=== PATIENT | male | born 1925 | race Caucasian/White ===

== ENCOUNTER 2016-12-26 13:42 | Inpatient (IN) | payer MEDICARE, BC ==
[~2016-12-26] VITALS: Ht 182.9 cm; Wt 72.6 kg
[2016-12-26] MEDS ORDERED: IV NORMAL SALINE 1000 ML BAG IV ONE (14:15)
[2016-12-26 14:31] LABS: BASOPHILS % (AUTO) 0.3 % (0.0-2.0); EOSINOPHILS # (AUTO) 0.1 K/uL (0.0-0.7); EOSINOPHILS % (AUTO) 1.3 % (0.0-7.0); HEMATOCRIT 44.6 % (40-50); HEMOGLOBIN 14.4 G/DL (14.0-18.0); LYMPHOCYTES # (AUTO) 0.9 K/UL (0.8-4.8); LYMPHOCYTES % (AUTO) 10.3 % (20.5-51.5); MEAN CORPUSCULAR HEMOGLOBIN 28.6 UUG (27.0-31.0); MEAN CORPUSCULAR HGB CONC 32 g/dL (32.0-37.0); MEAN CORPUSCULAR VOLUME 88.5 FL (82.0-92.0); MONOCYTES % (AUTO) 12.5 % (0.0-11.0); NEUTROPHILS # (AUTO) 6.4 K/UL (1.8-8.9); NEUTROPHILS % (AUTO) 75.6 % (38.5-71.5); PLATELET COUNT (AUTO) 154 K/UL (150-450); RED BLOOD CELL COUNT(AUTO) 5.05 MIL/UL (4.7-6.1); WHITE BLOOD COUNT (AUTO) 8.4 K/UL (4.0-11.2)
[2016-12-26 14:40] LABS: CARBON DIOXIDE 27 mmol/L (21-32); CHLORIDE 103 mmol/L (98-107); CREATININE 1.1 mg/dL (0.6-1.3); GLUCOSE 128 mg/dL (74-106); POTASSIUM 4.3 mmol/L (3.5-5.1); UREA NITROGEN, BLOOD 35 mg/dL (7-18)
[2016-12-26 14:45] LABS: ALANINE AMINOTRANSFERASE 14 U/L (16-63); ALKALINE PHOSPHATASE 49 U/L (50-136); ASPARTATE AMINOTRANSFERASE 22 U/L (15-37); BILIRUBIN,DIRECT 0.2 mg/dL (0.0-0.2); BILIRUBIN,TOTAL 0.7 mg/dL (0.2-1.0); TOTAL PROTEIN, SERUM 6.3 g/dL (6.4-8.2)
[2016-12-26] MEDS ORDERED: ATOR10TA PO (14:54)
[2016-12-26] MEDS ORDERED: PANT40TA2 PO (14:54)
[2016-12-26] MEDS ORDERED: MONT10TA22 PO (14:54)
[2016-12-26] MEDS ORDERED: VALS1TAB2 PO (14:54)
[2016-12-26] MEDS ORDERED: ISOS30TA9 PO (14:55)
[2016-12-26] MEDS ORDERED: TYLENOL PO (14:56)
[2016-12-26 15:05] LABS: THYROID STIMULATING HORMONE 1.079 mIU/mL (0.358-3.740)
[2016-12-26 16:07] VITALS: BP 129/69
[2016-12-26] MEDS ORDERED: HOME MED MISCELLANEOUS XX SCH (16:30)
[2016-12-26] MEDS: IV D5/ 0.9% NACL 1,000 ML IV PRN (17:18)
[2016-12-26 20:21] VITALS: BP 119/56
[2016-12-26] MEDS: ATORVASTATIN 10 MG TABLET PO SCH (21:07)
[2016-12-27] VITALS (7 sets, daily range): BP systolic 90–140; BP diastolic 46–67
[2016-12-27] MEDS: IV D5/ 0.9% NACL 1,000 ML IV PRN ×2 (05:10→17:50)
[2016-12-27] MEDS: PANTOPRAZOLE SODIUM 40 MG TABLET.DR PO SCH (06:03)
[2016-12-27 07:33] LABS: BASOPHILS % (AUTO) 0.3 % (0.0-2.0); EOSINOPHILS # (AUTO) 0.1 K/uL (0.0-0.7); EOSINOPHILS % (AUTO) 2.3 % (0.0-7.0); HEMATOCRIT 40.5 % (40-50); HEMOGLOBIN 13.1 G/DL (14.0-18.0); LYMPHOCYTES # (AUTO) 1.2 K/UL (0.8-4.8); LYMPHOCYTES % (AUTO) 18.6 % (20.5-51.5); MEAN CORPUSCULAR HEMOGLOBIN 28.7 UUG (27.0-31.0); MEAN CORPUSCULAR HGB CONC 32 g/dL (32.0-37.0); MEAN CORPUSCULAR VOLUME 89.1 FL (82.0-92.0); MONOCYTES # (AUTO) 0.9 K/UL (0.1-1.30); MONOCYTES % (AUTO) 14.4 % (0.0-11.0); NEUTROPHILS # (AUTO) 4.2 K/UL (1.8-8.9); NEUTROPHILS % (AUTO) 64.4 % (38.5-71.5); PLATELET COUNT (AUTO) 152 K/UL (150-450); RED BLOOD CELL COUNT(AUTO) 4.55 MIL/UL (4.7-6.1); WHITE BLOOD COUNT (AUTO) 6.4 K/UL (4.0-11.2)
[2016-12-27 07:50] LABS: CARBON DIOXIDE 25 mmol/L (21-32); CHLORIDE 106 mmol/L (98-107); GLUCOSE 134 mg/dL (74-106); POTASSIUM 3.8 mmol/L (3.5-5.1); UREA NITROGEN, BLOOD 28 mg/dL (7-18)
[2016-12-27] MEDS: ACETAMINOPHEN 325 MG TABLET PO PRN (08:15)
[2016-12-27] MEDS: MONTELUKAST SODIUM 10 MG TABLET PO SCH (08:15)
[2016-12-27] MEDS: VALSARTAN 80 MG TABLET PO SCH (08:15)
[2016-12-27] MEDS ORDERED: HYDROCHLOROTHIAZIDE 12.5 MG CAPSULE PO SCH (09:00)
[2016-12-27] MEDS ORDERED: ISOSORBIDE DINITRATE 20 MG TABLET PO SCH (09:00)
[2016-12-27] MEDS: CELECOXIB 200 MG CAPSULE PO SCH (18:22)
[2016-12-27] MEDS: ATORVASTATIN 10 MG TABLET PO SCH (20:59)
[2016-12-27] MEDS: ENOXAPARIN SODIUM 40 MG/0.4 ML DISP.SYRIN SQ SCH (21:00)
[2016-12-27] MEDS ORDERED: ENOXAPARIN SODIUM 30 MG/0.3 ML DISP.SYRIN SUBCUT SCH (21:00)
[2016-12-28] VITALS: BP 108/56
[2016-12-28] MEDS: IV D5/ 0.9% NACL 1,000 ML IV PRN ×2 (06:12→18:21)
[2016-12-28] MEDS: PANTOPRAZOLE SODIUM 40 MG TABLET.DR PO SCH (06:13)
[2016-12-28 06:44] VITALS: BP 110/62
[2016-12-28 07:25] LABS: ALANINE AMINOTRANSFERASE 14 U/L (16-63); ALKALINE PHOSPHATASE 46 U/L (50-136); ASPARTATE AMINOTRANSFERASE 20 U/L (15-37); BILIRUBIN,TOTAL 0.6 mg/dL (0.2-1.0); CARBON DIOXIDE 26 mmol/L (21-32); CHLORIDE 108 mmol/L (98-107); CREATININE 0.9 mg/dL (0.6-1.3); GLUCOSE 104 mg/dL (74-106); MAGNESIUM 1.8 mg/dL (1.8-2.4); PHOSPHOROUS 2.8 mg/dL (2.5-4.9); POTASSIUM 3.8 mmol/L (3.5-5.1); TOTAL PROTEIN, SERUM 5.8 g/dL (6.4-8.2); UREA NITROGEN, BLOOD 26 mg/dL (7-18)
[2016-12-28 07:48] LABS: BASOPHILS % (AUTO) 0.4 % (0.0-2.0); EOSINOPHILS # (AUTO) 0.3 K/uL (0.0-0.7); EOSINOPHILS % (AUTO) 6.2 % (0.0-7.0); HEMATOCRIT 39.8 % (40-50); HEMOGLOBIN 12.9 G/DL (14.0-18.0); LYMPHOCYTES % (AUTO) 19.4 % (20.5-51.5); MEAN CORPUSCULAR HEMOGLOBIN 28.7 UUG (27.0-31.0); MEAN CORPUSCULAR HGB CONC 32 g/dL (32.0-37.0); MEAN CORPUSCULAR VOLUME 88.4 FL (82.0-92.0); MONOCYTES # (AUTO) 0.8 K/UL (0.1-1.30); MONOCYTES % (AUTO) 14.9 % (0.0-11.0); NEUTROPHILS # (AUTO) 3.1 K/UL (1.8-8.9); NEUTROPHILS % (AUTO) 59.1 % (38.5-71.5); PLATELET COUNT (AUTO) 149 K/UL (150-450); WHITE BLOOD COUNT (AUTO) 5.2 K/UL (4.0-11.2)
[2016-12-28 08:00] VITALS: BP 123/69
[2016-12-28] MEDS: MONTELUKAST SODIUM 10 MG TABLET PO SCH (09:07)
[2016-12-28] MEDS: VALSARTAN 80 MG TABLET PO SCH (09:07)
[2016-12-28] MEDS: CELECOXIB 200 MG CAPSULE PO SCH (09:07)
[2016-12-28] MEDS ORDERED: ISOS60TA4 PO (11:10)
[2016-12-28] MEDS: ISOSORBIDE MONONITRATE 60 MG TAB.SR.24H PO SCH (14:07)
[2016-12-28 16:25] VITALS: BP 115/70
[2016-12-28] MEDS: ATORVASTATIN 10 MG TABLET PO SCH (22:09)
[2016-12-28] MEDS: ENOXAPARIN SODIUM 40 MG/0.4 ML DISP.SYRIN SQ SCH (22:10)
[2016-12-29 01:47] LABS: *BILIRUBIN,URIN NEGATIVE (NEGATIVE); *BLOOD, URINE NEGATIVE (NEGATIVE); *CLARITY,URINE CLEAR (CLEAR); *COLOR,URINE YELLOW (YELLOW); *KETONES,URINE NEGATIVE (NEGATIVE); *PROTEIN,URINE NEGATIVE (NEGATIVE); *UROBILINOGEN,URINE 0.2 E.U./dl (NORMAL); LEUKOCYTE ESTERASE ,URINE NEGATIVE (NEGATIVE); NITRITE, URINE NEGATIVE (NEGATIVE); UGLUCOSE NEGATIVE (NEGATIVE)
[2016-12-29 01:54] LABS: *AMPHETAMINE, URINE NEGATIVE (NEGATIVE); *BARBITURATE, URINE NEGATIVE (NEGATIVE); *CANNABINOID, URINE NEGATIVE (NEGATIVE); *COCCAINE, URINE NEGATIVE (NEGATIVE); *OPIATE, URINE NEGATIVE (NEGATIVE); *PHENCYCLIDINE SCREEN,URINE NEGATIVE (NEGATIVE)
[2016-12-29 02:01] LABS: BACTERIA,URINE FEW /HPF (NONE SEEN); RBC,URINE 0-3 /HPF (0-3); SQUAMOUS EPITHELIAL CELL,UR FEW /HPF (NONE SEEN)
[2016-12-29] MEDS: PANTOPRAZOLE SODIUM 40 MG TABLET.DR PO SCH (06:30)
[2016-12-29] MEDS: IV D5/ 0.9% NACL 1,000 ML IV PRN (06:33)
[2016-12-29 06:59] VITALS: BP 124/69
[2016-12-29 07:54] LABS: BASOPHILS % (AUTO) 0.3 % (0.0-2.0); EOSINOPHILS # (AUTO) 0.5 K/uL (0.0-0.7); EOSINOPHILS % (AUTO) 8.8 % (0.0-7.0); HEMATOCRIT 37.5 % (40-50); HEMOGLOBIN 12.4 G/DL (14.0-18.0); LYMPHOCYTES # (AUTO) 0.9 K/UL (0.8-4.8); MEAN CORPUSCULAR HGB CONC 33 g/dL (32.0-37.0); MEAN CORPUSCULAR VOLUME 88.3 FL (82.0-92.0); MONOCYTES # (AUTO) 0.8 K/UL (0.1-1.30); MONOCYTES % (AUTO) 13.2 % (0.0-11.0); NEUTROPHILS # (AUTO) 3.6 K/UL (1.8-8.9); NEUTROPHILS % (AUTO) 61.7 % (38.5-71.5); PLATELET COUNT (AUTO) 156 K/UL (150-450); RED BLOOD CELL COUNT(AUTO) 4.25 MIL/UL (4.7-6.1); WHITE BLOOD COUNT (AUTO) 5.8 K/UL (4.0-11.2)
[2016-12-29 08:37] LABS: ALANINE AMINOTRANSFERASE 15 U/L (16-63); ALKALINE PHOSPHATASE 49 U/L (50-136); ASPARTATE AMINOTRANSFERASE 22 U/L (15-37); BILIRUBIN,TOTAL 0.5 mg/dL (0.2-1.0); CARBON DIOXIDE 26 mmol/L (21-32); CHLORIDE 108 mmol/L (98-107); CREATININE 0.9 mg/dL (0.6-1.3); GLUCOSE 104 mg/dL (74-106); MAGNESIUM 1.6 mg/dL (1.8-2.4); PHOSPHOROUS 2.4 mg/dL (2.5-4.9); POTASSIUM 3.9 mmol/L (3.5-5.1); TOTAL PROTEIN, SERUM 5.5 g/dL (6.4-8.2); UREA NITROGEN, BLOOD 23 mg/dL (7-18)
[2016-12-29] MEDS ORDERED: VALS80TA2 PO (08:56)
[2016-12-29] MEDS ORDERED: MAGNESIUM SULFATE/D5W 100 ML IV SCH (09:00)
[2016-12-29] MEDS: MONTELUKAST SODIUM 10 MG TABLET PO SCH (10:09)
[2016-12-29] MEDS: ISOSORBIDE MONONITRATE 60 MG TAB.SR.24H PO SCH (10:09)
[2016-12-29] MEDS: VALSARTAN 80 MG TABLET PO SCH (10:09)
[2016-12-29] MEDS: CELECOXIB 200 MG CAPSULE PO SCH (10:09)
[2016-12-29] MEDS: POTASSIUM PHOSPHATE MM 5 MMOL in IV DEXTROSE 5% 100 ML IV SCH ×2 (11:25→13:42)
[2016-12-29 12:45] VITALS: BP 126/69
[2016-12-29 15:41] VITALS: BP 121/71
[2016-12-29 20:06] VITALS: BP 133/78
[2016-12-29 20:18] VITALS: BP 146/87
[2016-12-29] MEDS: ACETAMINOPHEN 325 MG TABLET PO PRN (20:56)
[2016-12-29] MEDS: ATORVASTATIN 10 MG TABLET PO SCH (20:56)
[2016-12-29] MEDS: ENOXAPARIN SODIUM 40 MG/0.4 ML DISP.SYRIN SQ SCH (20:58)
[2016-12-30 04:51] VITALS: BP 147/87
[2016-12-30] MEDS: PANTOPRAZOLE SODIUM 40 MG TABLET.DR PO SCH (06:01)
[2016-12-31] MEDS ORDERED: DORZ10DR11 EACHEYE (18:05)
== END 2016-12-30 07:57 | DRG 684 ==
LOC: ER 13:42 → TELE 15:31 → MED 12-28 19:35
PROVIDERS: ADMIT Internal Medicine Nephrology; ATTEND Internal Medicine Nephrology
DX: N17.9 Acute kidney failure, unspecified (principal); E86.0 Dehydration; N32.81 Overactive bladder; Z86.73 Personal history of transient ischemic attack (TIA), and cerebral infarction without residual deficits; I10 Essential (primary) hypertension; E78.00 Pure hypercholesterolemia, unspecified; M19.90 Unspecified osteoarthritis, unspecified site; M10.9 Gout, unspecified; H40.9 Unspecified glaucoma; S66.912A Strain of unspecified muscle, fascia and tendon at wrist and hand level, left hand, initial encounter; X58.XXXA Exposure to other specified factors, initial encounter; Y92.9 Unspecified place or not applicable
CPT/HCPCS: 36415; 70030-TC; 71010; 73110; 80307; 83735; 84100; 84443; 85025; 85730; 87070; 87086; 93005; 97161; A4663; J1650; J3475; J3490; J7030; J7042; J7060

== ENCOUNTER 2016-12-30 08:47 | Inpatient (IN) | payer MEDICARE, BC ==
[~2016-12-30] VITALS: Ht 180.3 cm; Wt 77.6 kg
[~2016-12-30 08:47] MED LIST: ATOR10TA PO; ISOS30TA9 PO; ISOS60TA4 PO; MONT10TA22 PO; PANT40TA2 PO; TYLENOL PO; VALS1TAB2 PO; VALS80TA2 PO
[2016-12-30] MEDS ORDERED: Z GUARD REMEDY PASTE 57 GM TUBE TOP PRN (09:30)
[2016-12-30] MEDS ORDERED: ACETAMINOPHEN 325 MG TABLET PO PRN ×2 (11:45→17:15)
[2016-12-30] MEDS ORDERED: CELECOXIB 200 MG CAPSULE PO SCH (11:45)
[2016-12-30] MEDS: ISOSORBIDE MONONITRATE 60 MG TAB.SR.24H PO SCH (11:45)
[2016-12-30] MEDS: VALSARTAN 80 MG TABLET PO SCH (11:45)
[2016-12-30 14:00] VITALS: BP 129/69
[2016-12-30] MEDS: MONTELUKAST SODIUM 10 MG TABLET PO SCH (15:27)
[2016-12-30] MEDS: PANTOPRAZOLE SODIUM 40 MG TABLET.DR PO SCH (15:32)
[2016-12-30] MEDS ORDERED: ATORVASTATIN 10 MG TABLET PO SCH (18:00)
[2016-12-30] MEDS: CELECOXIB 200 MG CAPSULE PO SCH (20:34)
[2016-12-30] MEDS: ATORVASTATIN 10 MG TABLET PO SCH (20:34)
[2016-12-30] MEDS: ENOXAPARIN SODIUM 40 MG/0.4 ML DISP.SYRIN SQ SCH (21:00)
[2016-12-30 21:24] VITALS: BP 127/69
[2016-12-31] MEDS: PANTOPRAZOLE SODIUM 40 MG TABLET.DR PO SCH (06:43)
[2016-12-31 08:31] VITALS: BP 137/77
[2016-12-31] MEDS: MONTELUKAST SODIUM 10 MG TABLET PO SCH (08:44)
[2016-12-31] MEDS: VALSARTAN 80 MG TABLET PO SCH (08:44)
[2016-12-31] MEDS: ISOSORBIDE MONONITRATE 60 MG TAB.SR.24H PO SCH (08:44)
[2016-12-31] MEDS ORDERED: PANTOPRAZOLE SODIUM 40 MG TABLET.DR PO SCH (09:00)
[2016-12-31] MEDS ORDERED: ISOSORBIDE MONONITRATE 60 MG TAB.SR.24H PO SCH (09:00)
[2016-12-31] MEDS ORDERED: VALSARTAN 80 MG TABLET PO SCH (09:00)
[2016-12-31] MEDS ORDERED: MONTELUKAST SODIUM 10 MG TABLET PO SCH (09:00)
[2016-12-31] MEDS ORDERED: DORZ10DR11 EACHEYE (18:05)
[2016-12-31] MEDS: CELECOXIB 200 MG CAPSULE PO SCH (21:27)
[2016-12-31] MEDS: ATORVASTATIN 10 MG TABLET PO SCH (21:27)
[2016-12-31] MEDS: ENOXAPARIN SODIUM 40 MG/0.4 ML DISP.SYRIN SQ SCH (21:29)
[2016-12-31 21:35] VITALS: BP 121/62
[2017-01-01] MEDS: PANTOPRAZOLE SODIUM 40 MG TABLET.DR PO SCH (06:03)
[2017-01-01] MEDS: ISOSORBIDE MONONITRATE 60 MG TAB.SR.24H PO SCH (08:44)
[2017-01-01] MEDS: MONTELUKAST SODIUM 10 MG TABLET PO SCH (08:45)
[2017-01-01] MEDS: DORZOLAMIDE/TIMOLOL OPHT DROP 10 ML BOTTLE EACHEYE SCH ×2 (08:50→20:55)
[2017-01-01 11:07] VITALS: BP 138/81
[2017-01-01 20:00] VITALS: BP 119/72
[2017-01-01] MEDS: CELECOXIB 200 MG CAPSULE PO SCH (20:47)
[2017-01-01] MEDS: ATORVASTATIN 10 MG TABLET PO SCH (20:47)
[2017-01-01] MEDS: ENOXAPARIN SODIUM 40 MG/0.4 ML DISP.SYRIN SQ SCH (20:50)
[2017-01-02] MEDS: PANTOPRAZOLE SODIUM 40 MG TABLET.DR PO SCH (06:31)
[2017-01-02 08:00] VITALS: BP 113/69
[2017-01-02] MEDS: ISOSORBIDE MONONITRATE 60 MG TAB.SR.24H PO SCH (09:00)
[2017-01-02] MEDS: MONTELUKAST SODIUM 10 MG TABLET PO SCH ×2 (09:20→09:29)
[2017-01-02] MEDS: DORZOLAMIDE/TIMOLOL OPHT DROP 10 ML BOTTLE EACHEYE SCH ×2 (09:24→21:03)
[2017-01-02] MEDS ORDERED: SILVER SULFADIAZINE 1% CREAM 50 GM TP PRN (11:15)
[2017-01-02] MEDS: CELECOXIB 200 MG CAPSULE PO SCH (20:58)
[2017-01-02] MEDS: ATORVASTATIN 10 MG TABLET PO SCH (20:58)
[2017-01-02 21:03] VITALS: BP 129/66
[2017-01-02] MEDS: ENOXAPARIN SODIUM 40 MG/0.4 ML DISP.SYRIN SQ SCH (21:04)
[2017-01-03 09:28] VITALS: BP 142/71
[2017-01-03] MEDS: PANTOPRAZOLE SODIUM 40 MG TABLET.DR PO SCH (09:28)
[2017-01-03] MEDS: ISOSORBIDE MONONITRATE 60 MG TAB.SR.24H PO SCH (09:28)
[2017-01-03] MEDS: DORZOLAMIDE/TIMOLOL OPHT DROP 10 ML BOTTLE EACHEYE SCH (09:28)
== END 2017-01-03 09:30 | disposition left against medical advice (07) | DRG 41 ==
PROVIDERS: ADMIT Physical Medicine & Rehabilitation Pain Medicine; ATTEND Physical Medicine & Rehabilitation Pain Medicine
PROC: 0JDR0ZZ Extraction of Left Foot Subcutaneous Tissue and Fascia, Open Approach (ICD-10-PCS; principal; 2017-01-03)
PROC: 0HBNXZZ Excision of Left Foot Skin, External Approach (ICD-10-PCS; 2017-01-03)
PROC: 0HBRXZZ Excision of Toe Nail, External Approach (ICD-10-PCS; 2017-01-03)
DX: I69.354 Hemiplegia and hemiparesis following cerebral infarction affecting left non-dominant side (principal); E46 Unspecified protein-calorie malnutrition; L97.329 Non-pressure chronic ulcer of left ankle with unspecified severity; N17.9 Acute kidney failure, unspecified; I69.398 Other sequelae of cerebral infarction; R53.1 Weakness; N32.81 Overactive bladder; I10 Essential (primary) hypertension; S63.502D Unspecified sprain of left wrist, subsequent encounter; X58.XXXD Exposure to other specified factors, subsequent encounter; B35.1 Tinea unguium; E78.5 Hyperlipidemia, unspecified; H40.9 Unspecified glaucoma; I87.2 Venous insufficiency (chronic) (peripheral); I89.0 Lymphedema, not elsewhere classified; L84 Corns and callosities; M10.9 Gout, unspecified; M19.90 Unspecified osteoarthritis, unspecified site; M65.9 Synovitis and tenosynovitis, unspecified; M77.9 Enthesopathy, unspecified; Z74.01 Bed confinement status; E86.0 Dehydration
CPT/HCPCS: 70030-TC; 92523; 97110; 97116; 97161; 97530; 97535; J1650

== ENCOUNTER 2017-01-22 16:47 | Inpatient (IN) | payer MEDICARE, BC ==
[~2017-01-22] VITALS: Ht 180.3 cm; Wt 75.7 kg
[~2017-01-22 16:47] MED LIST changes: +DORZ10DR11 EACHEYE; -ISOS30TA9 PO; -VALS1TAB2 PO
[2017-01-22] MEDS ORDERED: EPINEPHRINE 0.1% NS ONE (17:00)
[2017-01-22] MEDS ORDERED: EPINEPHRINE 1:1000 30 MG/30 ML VIAL IV ONE (17:00)
--- NOTE | 2017-01-22 17:06 | NUR ---
PER MD TEJEDA, HOLD EKG AT THIS TIME. UNTIL BLEEDING IS CONTROLLED
[2017-01-22] MEDS ORDERED: EPINEPHRINE 1 MG/1 ML AMP ONE (17:08)
[2017-01-22] MEDS ORDERED: EPINEPHRINE 0.1% ONE (17:13)
[2017-01-22] MEDS ORDERED: ASPIRIN PO (17:30)
[2017-01-22 18:03] LABS: BASOPHILS % (AUTO) 0.5 % (0.0-2.0); EOSINOPHILS # (AUTO) 0.3 K/uL (0.0-0.7); EOSINOPHILS % (AUTO) 3.7 % (0.0-7.0); HEMATOCRIT 43.9 % (40-50); HEMOGLOBIN 14.2 G/DL (14.0-18.0); LYMPHOCYTES # (AUTO) 1.4 K/UL (0.8-4.8); LYMPHOCYTES % (AUTO) 17.5 % (20.5-51.5); MEAN CORPUSCULAR HEMOGLOBIN 28.9 UUG (27.0-31.0); MEAN CORPUSCULAR HGB CONC 32 g/dL (32.0-37.0); MEAN CORPUSCULAR VOLUME 89.4 FL (82.0-92.0); MONOCYTES # (AUTO) 1.2 K/UL (0.1-1.30); MONOCYTES % (AUTO) 14.3 % (0.0-11.0); NEUTROPHILS # (AUTO) 5.2 K/UL (1.8-8.9); PLATELET COUNT (AUTO) 206 K/UL (150-450); RED BLOOD CELL COUNT(AUTO) 4.91 MIL/UL (4.7-6.1); WHITE BLOOD COUNT (AUTO) 8.1 K/UL (4.0-11.2)
[2017-01-22 18:04] LABS: CARBON DIOXIDE 31 mmol/L (21-32); CHLORIDE 105 mmol/L (98-107); CREATININE 1.2 mg/dL (0.6-1.3); GLUCOSE 92 mg/dL (74-106); POTASSIUM 4.5 mmol/L (3.5-5.1); UREA NITROGEN, BLOOD 32 mg/dL (7-18)
[2017-01-22 20:15] VITALS: BP 120/61
--- NOTE | 2017-01-22 20:15 | NUR ---
Call placed to [facility] Nephrology, Dr. Landeros will be paged.
--- NOTE | 2017-01-22 21:07 | NUR ---
Pt. admitted to [facility], under care of Dr. Landeros Belongs List completed
--- NOTE | 2017-01-22 21:10 | NUR ---
RECEIVED PATIENT VIA GURNEY FROM ER. PATIENT IS A/O X2. FORGETFUL AT TIMES, NEEDS FREQUENT REDIRECTION. VSS UPON ADMISSION. PATIENTS SON AT BEDSIDE, STATING THAT PATIENT STARTED BLEEDING UNCONTROLLABLE TO LEFT LOWER EXTREMITY. PATIENT TAKES ELIQUIS DAILY PER SON. DRESSINGS NOTED TO BILATERAL LOWER EXTREMITIES. RECEIVED REPORT FROM ER THAT DRESSINGS ARE TO REMAIN INTACT AND DO NOT UNWRAP. MD WILL BE IN TO SEE PATIENT IN THE AM. SON ALSO REFUSED FOR DRESSINGS TO BE REMOVED FOR PICTURES UPON ADMISSION. PATIENT DENIES ANY PAIN OR DISCOMFORT. NO RESP. DISTRESS NOTED. PATIENT MADE COMFORTABLE. BED ALARM ON. CALL LIGHT IN REACH. ALL NEEDS ATTENDED. WILL CONTINUE TO MONITOR.
[2017-01-23 05:00] VITALS: BP 139/67
--- NOTE | 2017-01-23 05:00 | NUR ---
PATIENT AWAKE IN BED. SLEPT WELL. DENIES PAIN OR DISCOMFORT. NO RESP. DISTRESS NOTED. CALL LIGHT IN REACH. ALL NEEDS ATTENDED. WILL CONTINUE TO MONITOR.
[2017-01-23 07:42] LABS: BASOPHILS % (AUTO) 0.5 % (0.0-2.0); EOSINOPHILS # (AUTO) 0.4 K/uL (0.0-0.7); EOSINOPHILS % (AUTO) 5.2 % (0.0-7.0); HEMATOCRIT 40.7 % (40-50); HEMOGLOBIN 13.3 G/DL (14.0-18.0); LYMPHOCYTES # (AUTO) 1.3 K/UL (0.8-4.8); LYMPHOCYTES % (AUTO) 17.3 % (20.5-51.5); MEAN CORPUSCULAR HGB CONC 33 g/dL (32.0-37.0); MEAN CORPUSCULAR VOLUME 88.9 FL (82.0-92.0); MONOCYTES # (AUTO) 0.9 K/UL (0.1-1.30); MONOCYTES % (AUTO) 12.4 % (0.0-11.0); NEUTROPHILS # (AUTO) 5.1 K/UL (1.8-8.9); NEUTROPHILS % (AUTO) 64.6 % (38.5-71.5); PLATELET COUNT (AUTO) 201 K/UL (150-450); RED BLOOD CELL COUNT(AUTO) 4.58 MIL/UL (4.7-6.1); WHITE BLOOD COUNT (AUTO) 7.7 K/UL (4.0-11.2)
[2017-01-23] MEDS ORDERED: ACETAMINOPHEN 325 MG TABLET PO PRN (08:30)
[2017-01-23] MEDS ORDERED: PANTOPRAZOLE SODIUM 40 MG TABLET.DR PO SCH (08:33)
[2017-01-23 08:51] LABS: ALANINE AMINOTRANSFERASE 18 U/L (16-63); ALKALINE PHOSPHATASE 63 U/L (50-136); ASPARTATE AMINOTRANSFERASE 25 U/L (15-37); BILIRUBIN,TOTAL 0.4 mg/dL (0.2-1.0); CARBON DIOXIDE 26 mmol/L (21-32); CHLORIDE 105 mmol/L (98-107); CREATININE 1.1 mg/dL (0.6-1.3); GLUCOSE 91 mg/dL (74-106); MAGNESIUM 2.1 mg/dL (1.8-2.4); PHOSPHOROUS 3.5 mg/dL (2.5-4.9); POTASSIUM 4.2 mmol/L (3.5-5.1); TOTAL PROTEIN, SERUM 6.2 g/dL (6.4-8.2); UREA NITROGEN, BLOOD 28 mg/dL (7-18)
[2017-01-23] MEDS ORDERED: MONTELUKAST SODIUM 10 MG TABLET PO SCH (09:00)
[2017-01-23] MEDS ORDERED: ISOSORBIDE MONONITRATE 60 MG TAB.SR.24H PO SCH (09:00)
[2017-01-23] MEDS ORDERED: ASPIRIN 81 MG TAB.CHEW PO SCH (09:00)
[2017-01-23 10:54] VITALS: BP 105/59
[2017-01-23 15:32] VITALS: BP 100/62
--- NOTE | 2017-01-23 15:43 | NUR ---
Discharge Plan: Once medically cleared patient will be discharged back home [[address] [place] [address]]. Patient will be transported via ambulance. Patient and Waqar are aware and agreeable with the discharge plan.
--- NOTE | 2017-01-23 19:09 | NUR ---
IV D/C'D. V/S STABLE. LEFT LEG WOUND REDRESSED--NO BLEEDING NOTED. SON AT BEDSIDE. ALL HOME INSTRUCTIONS REVIEWED WITH PT. AND SON INCLUDING FOLLOW-UP CARE. APPTS TO BE MADE WITH PMD---DR. SANTOS--[phone],, DR. VALADEZ [WOUND CARE] [phone]. CALL BOTH MD'S ON Wednesday01-25-17 FOR APPTS. PT'S SON DOES NOT WANT NURSING TO MAKE THE M.D. APPTS--STATES HE WILL DO IT HIMSELF. DISCHARGED HOME TO SON VIA AMBULANCE.
[2017-01-23] MEDS ORDERED: ATORVASTATIN 10 MG TABLET PO SCH (21:00)
== END 2017-01-23 19:15 | disposition home or self-care (01) | DRG 920 ==
LOC: ER 16:47 → MED 20:38
PROVIDERS: ADMIT Internal Medicine; ATTEND Internal Medicine
DX: L76.22 Postprocedural hemorrhage of skin and subcutaneous tissue following other procedure (principal); N17.9 Acute kidney failure, unspecified; L97.929 Non-pressure chronic ulcer of unspecified part of left lower leg with unspecified severity; E44.1 Mild protein-calorie malnutrition; Z86.73 Personal history of transient ischemic attack (TIA), and cerebral infarction without residual deficits; I10 Essential (primary) hypertension; K21.9 Gastro-esophageal reflux disease without esophagitis; H40.9 Unspecified glaucoma; E78.00 Pure hypercholesterolemia, unspecified; M10.9 Gout, unspecified; N32.81 Overactive bladder; M19.91 Primary osteoarthritis, unspecified site; Y83.9 Surgical procedure, unspecified as the cause of abnormal reaction of the patient, or of later complication, without mention of misadventure at the time of the procedure; Z79.01 Long term (current) use of anticoagulants; Z86.718 Personal history of other venous thrombosis and embolism; Z79.899 Other long term (current) drug therapy
CPT/HCPCS: 36415; 71010; 83735; 84100; 85025; 85730; 93005; J0171

== ENCOUNTER 2017-01-27 10:33 | Emergency (ER) | payer MEDICARE, BC ==
[~2017-01-27] VITALS: Ht 180.3 cm; Wt 74.8 kg
[~2017-01-27 10:33] MED LIST changes: +ASPIRIN PO; -DORZ10DR11 EACHEYE; -VALS80TA2 PO
--- NOTE | 2017-01-27 10:42 | NUR ---
PT IS IN ROOM #1B. DR ACKERMAN EVALUATED THE PT.
[2017-01-27] MEDS ORDERED: HYDROCODONE/APAP 5-325MG TABLET PO ONE (11:15)
[2017-01-27] MEDS ORDERED: ZOLP5TAB2 PO (11:24)
[2017-01-27] MEDS ORDERED: SILV10PO2 MC (11:24)
[2017-01-27] MEDS ORDERED: CELE200C PO (11:24)
[2017-01-27] MEDS ORDERED: HYDROCODONE/APAP 5-325MG TABLET ONE (11:24)
[2017-01-27] MEDS ORDERED: APIX2.5T PO (11:24)
[2017-01-27] MEDS ORDERED: ACET325T53 PO (11:24)
[2017-01-27] MEDS ORDERED: DIAZ5TAB PO (11:24)
--- NOTE | 2017-01-27 12:36 | NUR ---
PT WAS D/C TO HOME. D/C INSTRUCTIONS GIVEN TO THE PT AND TO HIS SON.
[2017-01-27 12:37] VITALS: BP 141/74
== END 2017-01-27 12:39 | disposition home or self-care (01) ==
LOC: ER 10:33
DX: M54.2 Cervicalgia (principal); E78.00 Pure hypercholesterolemia, unspecified; H40.9 Unspecified glaucoma; I10 Essential (primary) hypertension; K21.9 Gastro-esophageal reflux disease without esophagitis; M10.9 Gout, unspecified; M19.90 Unspecified osteoarthritis, unspecified site; Z48.01 Encounter for change or removal of surgical wound dressing; Z79.01 Long term (current) use of anticoagulants; Z86.73 Personal history of transient ischemic attack (TIA), and cerebral infarction without residual deficits; Z79.899 Other long term (current) drug therapy
CPT/HCPCS: 99283; A4663